=== PATIENT | female | born 1990 | race Caucasian/White ===

== ENCOUNTER 2020-03-19 13:22 | Outpatient (CLI) | payer OTHER, SELFPAY ==
[2020-03-22 06:16] LABS: SARS-CoV-2 RNA Undetected (Undetected); SARS-CoV-2 Specimen Source Nasopharynx
== END 2020-03-19 13:42 ==
PROVIDERS: Visit Provider Obstetrics & Gynecology Gynecology
DX: Z11.59 Encounter for screening for other viral diseases (principal)
CPT/HCPCS: U0003

== ENCOUNTER 2021-08-19 02:26 | Outpatient (CLI) | payer OTHER, SELFPAY ==
[2021-08-19 08:02] LABS: HCT 38.6 % (36.0-46.0); HGB 12.3 g/dL (11.2-15.7); MCH 30.6 pg (27.0-33.0); MCHC 31.9 % (32.0-36.0); MPV 8.4 fL (8.0-11.0); Platelet Count 296 10^3/uL (130-400); RBC 4.02 10^6/uL (3.93-5.22); RDW 11.9 % (11.7-14.6); RDW-SD 42.2 fL; WBC 14.27 10^3/uL (4.4-10.8)
[2021-08-19 08:12] LABS: Hemoglobin A1C 5.5 % (<5.7)
[2021-08-19 10:14] LABS: Calculated LDL 132 mg/dL (<100); Cholesterol 216 mg/dL (<200); HDL Cholesterol 71 mg/dL (40-60); Triglyceride 69 mg/dL (<150)
== END 2021-08-19 02:27 | disposition home or self-care (01) ==
LOC: LBO 02:26
PROVIDERS: PCP Nurse Practitioner; Visit Provider Nurse Practitioner
DX: Z13.6 Encounter for screening for cardiovascular disorders (principal); Z86.2 Personal history of diseases of the blood and blood-forming organs and certain disorders involving the immune mechanism; Z13.1 Encounter for screening for diabetes mellitus
CPT/HCPCS: 36415; 80061; 85027; 83036

== ENCOUNTER 2021-08-29 09:12 | Outpatient (REF) | payer OTHER, SELFPAY ==
--- NOTE | 2021-08-29 08:20 | PAPFT_PTH ---
PATIENT: Neelam An LOC: [facility] U#:[id number] AGE/SX: 31/F ROOM: RE08/29/[address]: Moni Mccord, PhD [employer] M[employer] OPERATOR : 1990 BED: DIS: 08/29/2021 SPEC #: [id number] RECD: 08/29/21 12:46 STATUS: MARY CARMEN RERamiro #: [id number] DIONNA: 08/29/21 08:[address]: Moni Mccord DEPT: [facility] Cytology RECD BY: Elvia Villa Tissues: 1 - CX/ENDOCX FOR PAP SMEARS Procedures: PAP THIN PREP/UVM Screening HPV DNA PROBE Comments: [id number]
--- OUTSIDE RECORDS SUMMARY | 2021-08-29 09:16 | XMS_ITS ---
:1990 External Reference #:[id number] Author Care Team Providers Name Role Phone Kimberly Jackson Primary Care Provider Unavailable Allergies None recorded. Medications None recorded. Problems None recorded. Procedures None recorded. Results Lab Results None recorded. Past Encounters 06/11/2021 Low Back Pain; Pain in Right Hip Joint Kimberly Jackson, DPT: [address], [place] [address], Ph. 03/11/2021 Low Back Pain; Pain in Right Hip Joint Kimberly Jackson, DPT: [address], [place] [address], Ph. 01/20/2021 Low Back Pain; Pain in Right Hip Joint Kimberly Jackson, DPT: [address], [place] [address], Ph. 01/07/2021 Low Back Pain; Pain in Right Hip Joint Kimberly Jackson, DPT: [address], [place] [address], Ph. 12/23/2020 Low Back Pain; Pain in Right Hip Joint Kimberly Jackson, DPT: [address], [place] [address], Ph. Social History None recorded. Vaccine List None recorded. Plan of Care Patient Goals STG to be met in 4 weeks: I in HEP demonstrate good hip/pelvis dissociation in supine and quadruped deny increased pain with short spurts of running (1 minute intervals with 3 minute rest) report decreased daily pain to <2/10 LTG to be met in 8 weeks: I in HEP progression demonstrate good hip/pelvis dissociation in standing and walking deny increased pain with running report decreased daily pain to <2/10 [place] after provoking activities such as sitting and running STG to be met in 4 weeks: I in HEP demonstrate good hip/pelvis dissociation in supine and quadruped deny increased pain with short spurts of running (1 minute intervals with 3 minute rest) report decreased daily pain to <2/10 LTG to be met in 8 weeks: I in HEP progression demonstrate good hip/pelvis dissociation in standing and walking deny increased pain with running report decreased daily pain to <2/10 [place] after provoking activities such as sitting and running STG to be met in 4 weeks: I in HEP demonstrate good hip/pelvis dissociation in supine and quadruped deny increased pain with short spurts of running (1 minute intervals with 3 minute rest) report decreased daily pain to <2/10 LTG to be met in 8 weeks: I in HEP progression demonstrate good hip/pelvis dissociation in standing and walking deny increased pain with running report decreased daily pain to <2/10 [place] after provoking activities such as sitting and running STG to be met in 4 weeks: I in HEP demonstrate good hip/pelvis dissociation in supine and quadruped deny increased pain with short spurts of running (1 minute intervals with 3 minute rest) report decreased daily pain to <2/10 LTG to be met in 8 weeks: I in HEP progression demonstrate good hip/pelvis dissociation in standing and walking deny increased pain with running report decreased daily pain to <2/10 [place] after provoking activities such as sitting and running STG to be met in 4 weeks: I in HEP demonstrate good hip/pelvis dissociation in supine and quadruped deny increased pain with short spurts of running (1 minute intervals with 3 minute rest) report decreased daily pain to <2/10 LTG to be met in 8 weeks: I in HEP progression demonstrate good hip/pelvis dissociation in standing and walking deny increased pain with running report decreased daily pain to <2/10 [place] after provoking activities such as sitting and running Reminders Provider Appointments None ? ? recorded. Lab None ? ? recorded. Referral None ? ? recorded. Procedures None ? ? recorded. Surgeries None ? ? recorded. Imaging None ? ? recorded. Vitals None recorded.
--- OUTSIDE RECORDS SUMMARY | 2021-08-29 09:16 | XMS_ITS | Encounter Summary ---
:1990 External Reference #:[id number] Author Reason for Visit Low Back Pain Assessment and Plan Assessment Note Neelam presents with continued in termittent symptoms which have been buried in nature since her last appointment. She is still unable to identify what flares her pain most of the time and is unab le to participate in the high level of a ctivities that she would like to. She does demonstrate good form and good strength with home exercise program and likely will need additional support in her pelvi s. We extensively discussed treatment op tions including a consult with [facility] as well as the possibility of PRP or prolotherapy. She demonstrated good understanding of education provided and will consider options and start the next phase of her intervention by contacting the appropriate parties. She was also referred to chiropractors. Pt will be seen every 6-8 weeks for 45 m inute session 1:1 with PT. PT will focus on strength, range of motion, flexibility, manual therapy, gait and mobility training, postural retraining and patient ed ucation re: activity progression. Modali ties as needed. Expect steady progress. 1. Low back pain 2. Pain in right hip joint Discussion Note: None recorded.Patient educational handouts: No information available. Plan of Care Patient Goals STG to [...] ? recorded. Imaging None ? ? recorded. Medications None recorded. Medications Administered None recorded. Vitals None recorded. Results Lab Results None recorded. Allergies None recorded. Problems None recorded. Procedures None recorded. Vaccine List None recorded. Social History None recorded. Functional Status Unknown. Past Encounters 06/11/2021 Low Back Pain; Pain in Right Hip Joint Kimberly Jackson, DPT: [address] [address], [place] [address], Ph. History of Present Illness ? PT L-spine Reported By: Patient HPI: Location: right, anterior, p osterior, lateral. Severity: pain level 1-5/10. Alleviating Factors: exercise; walking (20 minutes per day). Aggravating Factors: sitting . Associated Symptoms: numbness/tingling. Prior Studies: MRI Note: <p>Neelam reports she has been up and down. She had a month of pain after last appointment (unrelated to our appointment) and didn't do any exercises during that time. She reports she had been using a body pillow at night and that was making her back feel much better, but was having new pain in the front of the right thigh. She is having some pinching in her low back, but is generally feeling okay. She has not been doing any intensive exercise. She has been using a SI joint belta lot. She has been having some pain in the paraspinal muscles at the TL junction. </p><p>Pt is fully vaccinated for covid and is asymptomatic.</p>Review of Systems: ROS as noted in the HPI Review of Systems None recorded. Physical Exam ? PT L-Spine Eval Reported By: Patient Notes: <p>craigs test 5 degree on t he right</p><p>craigs test on the left 8 degrees</p><div>
</div ><p>3/5 right hip flexor</p><p>Flexibility WNL throughout LEs except ri ght quad is decreased</p><div>
</div> <p>Very poor hip/pelvic dissociation, especially with any hip exte nsion. </p><div>
</div><p>0 degrees of functional hip extension</p> <div>
</div><p>Gait WNL</p><p>Running gait decreased hip extension , decreased stride length. Heel striker</p><div>
</div><p >right pelvic rotation. </p><div>
</div><p>Relief with sacral traction</p><p>- stork</p><div>
</div><p>D ecreased trunk rotation to the left</p><p>decreased trunk s idebend to the right</p><p>Increased lumbar extension</p><p>Otherwise tr unk ROM WNL</p>
== END 2021-08-29 09:13 | disposition home or self-care (01) ==
LOC: LBN 09:12
PROVIDERS: PCP Nurse Practitioner; Visit Provider Nurse Practitioner
DX: Z12.4 Encounter for screening for malignant neoplasm of cervix (principal); Z11.51 Encounter for screening for human papillomavirus (HPV)
CPT/HCPCS: 88142; 87624

== ENCOUNTER 2021-11-28 01:41 | Outpatient (CLI) | payer OTHER, SELFPAY ==
[2021-11-28 08:27] LABS: Absolute Basophil Count 0.02 10^3/uL (0.0-0.2); Absolute Eosinophil Count 0.06 10^3/uL (0.0-0.7); Absolute Lymphocyte Count 1.79 10^3/uL (1.2-3.4); Absolute Monocyte Count 0.32 10^3/uL (0.1-0.8); Absolute Neutrophil Count 2.71 10^3/uL (1.2-6.7); Basophils % 0.4; Eosinophils % 1.2; HCT 40.7 % (36.0-46.0); HGB 13.3 g/dL (11.2-15.7); Lymphocytes % 36.5; MCH 31.3 pg (27.0-33.0); MCHC 32.7 % (32.0-36.0); MCV 96 fL (80-95); MPV 8.4 fL (8.0-11.0); Monocytes % 6.5; Neutrophils % 55.4; Platelet Count 214 10^3/uL (130-400); RBC 4.25 10^6/uL (3.93-5.22); RDW 11.7 % (11.7-14.6); RDW-SD 40.9 fL
[2021-11-28 09:36] LABS: Anion Gap 8.8 mmol/L (3-11); BUN 7 mg/dL (7-18); CO2 28.2 mmol/L (21.0-32.0); CREATININE 0.7 mg/dL (0.55-1.02); Calcium 9.3 mg/dL (8.5-10.1); Chloride 101 mmol/L (98-107); FREE T4 0.97 ng/dL (0.76-1.46); Glucose 86 mg/dL (74-106); Potassium 4.4 mmol/L (3.5-5.1); Sodium 138 mmol/L (136-145); TSH (W/Ref FT4) 2.24 uIU/mL (0.36-3.74)
[2021-11-28 17:56] LABS: T3,Free 3.4 pg/mL (2.8-5.3)
== END 2021-11-28 01:42 | disposition home or self-care (01) ==
LOC: LBO 01:41
PROVIDERS: PCP Nurse Practitioner; Visit Provider Family Medicine
DX: D72.829 Elevated white blood cell count, unspecified (principal); R53.83 Other fatigue
CPT/HCPCS: 36415; 80048; 84439; 84443; 84481; 85025

== ENCOUNTER → 2022-03-21 11:29 | Outpatient (CLI) | payer OTHER, SELFPAY ==
--- NOTE | 2022-03-21 11:45 | DI.RAD_ITS ---
Exam(s) XR CERVICAL SPINE COMP 4-5V EXAM: XR CERVICAL SPINE COMP 4-5V CLINICAL HISTORY: vertebral alignment TECHNIQUE: COMPARISON: No exams were available for comparison FINDINGS: Five views were obtained. There is a slight cervical kyphosis. Intervertebral disc spaces are well maintained. No prevertebral soft tissue abnormality. Unremarkable appearance of the vertebrae. Thuy ral foramina are well maintained. IMPRESSION: Slight kyphotic deformity which may be positional. RADIATION DOSE DELIVERED: Total DLP
--- NOTE | 2022-03-21 12:23 | DI.VRAD_ITS ---
PROCEDURE INFORMATION: Exam: XR Spine; Cervical Exam date and time: 03/21/2022 12:01 PM Age: 31 years old Clinical indication: Pain; Pain: Vertebral alignment TECHNIQUE: Imaging protocol: XR of the spine. Exam focused on the cervical spine. Views: 1 view. COMPARISON: No relevant prior studies available. FINDINGS: Bones/joints: Normal. No acute fracture. Normal alignment. Disc spaces are well preserved. No facet arthropathy. Soft tissues: Normal. No prevertebral soft tissue swelling. IMPRESSION: No acute findings. Dictated and Authenticated by: Aron Goss MD. Ordering:ANNA Villaseñor MD
== END ==
PROVIDERS: PCP Nurse Practitioner; Visit Provider Nurse Practitioner Family
DX: M54.2 Cervicalgia (principal); M40.292 Other kyphosis, cervical region
CPT/HCPCS: 72050

== ENCOUNTER 2022-05-06 02:44 | Outpatient (CLI) | payer OTHER, SELFPAY ==
[2022-05-07 06:05] LABS: Vitamin D 25 Total 38.3 ng/mL (30-100)
[2022-05-08 08:18] LABS: Homocysteine 7.5 umol/L (5.0-13.9)
[2022-05-08 12:54] LABS: Ceruloplasmin 22.9 mg/dL
[2022-05-08 13:11] LABS: Copper, Serum 92 mcg/dL (77-206)
[2022-05-11 17:21] LABS: Apolipoprotein B, Serum 89 mg/dL (48-124); Beta VLDL Cholesterol Not Detected mg/dL (<15); Beta VLDL Triglycerides Not Detected mg/dL (<15); Cholesterol, Total, CDC 189 mg/dL; Chylomicron Cholesterol Not Detected; Chylomicron Triglycerides Not Detected; HDL Cholesterol, CDC 63 mg/dL (>=50); Interpretation Normal; LDL Cholesterol 119 mg/dL; LDL Triglycerides 24 mg/dL (<=50); Lp(a) Cholesterol <5 mg/dL (<5); LpX Not detected; Triglycerides, CDC 54 mg/dL; VLDL Cholesterol 7 mg/dL (<30); VLDL Triglycerides 15 mg/dL (<120)
[2022-05-22 11:43] LABS: Misc Referral (MAYO) See Comments
== END 2022-05-06 02:45 | disposition home or self-care (01) ==
PROVIDERS: PCP Nurse Practitioner; Visit Provider Naturopath
DX: Z13.29 Encounter for screening for other suspected endocrine disorder (principal); Z13.0 Encounter for screening for diseases of the blood and blood-forming organs and certain disorders involving the immune mechanism; Z13.21 Encounter for screening for nutritional disorder; Z13.228 Encounter for screening for other metabolic disorders; Z13.220 Encounter for screening for lipoid disorders; Z51.81 Encounter for therapeutic drug level monitoring
CPT/HCPCS: 36415; 80061; 82306; 82390; 82525; 83090; 84630; 82172; 82664

== ENCOUNTER 2022-08-21 01:32 | Outpatient (CLI) | payer BC, SELFPAY | END 2022-08-21 01:33 | disposition home or self-care (01) | PROVIDERS: PCP Nurse Practitioner Family; Visit Provider Family Medicine | DX: Z78.9 Other specified health status (principal) | CPT/HCPCS: 36415; 87207 ==

== ENCOUNTER 2023-02-12 02:12 | Outpatient (CLI) | payer BC, SELFPAY ==
[2023-02-12 13:16] LABS: Absolute Basophil Count 0.04 10^3/uL (0.0-0.2); Absolute Eosinophil Count 0.03 10^3/uL (0.0-0.7); Absolute Monocyte Count 0.24 10^3/uL (0.1-0.8); Absolute Neutrophil Count 2.12 10^3/uL (1.2-6.7); Eosinophils % 0.8; HCT 36.1 % (36.0-46.0); HGB 12.1 g/dL (11.2-15.7); Lymphocytes % 36.6; MCH 31.3 pg (27.0-33.0); MCHC 33.5 % (32.0-36.0); MCV 93 fL (80-95); MPV 9.2 fL (8.0-11.0); Monocytes % 6.3; Neutrophils % 55.3; Platelet Count 243 10^3/uL (130-400); RBC 3.87 10^6/uL (3.93-5.22); RDW 12.6 % (11.7-14.6); RDW-SD 43.1 fL; WBC 3.83 10^3/uL (4.4-10.8)
[2023-02-12 13:24] LABS: ESR < 1 mm/hr (0-20)
[2023-02-12 13:44] LABS: C-Reactive Protein < 0.05 mg/dL (0.0-0.3); FREE T4 0.87 ng/dL (0.76-1.46); TSH 0.87 uIU/mL (0.36-3.74)
[2023-02-12 14:21] LABS: Vitamin B12 1395 pg/mL (193-986)
[2023-02-12 21:45] LABS: T3,Free 3.6 pg/mL (2.8-5.3)
[2023-02-14 12:37] LABS: CMV Ab, IgG Negative (Negative); CMV Ab, IgM Negative (Negative); EBV EA IgG Negative (Negative)
[2023-02-15 11:12] LABS: EBNA IgG Positive (Negative); EBV Interpretation (See Note); VCA IgG Positive (Negative); VCA IgM Negative (Negative)
[2023-02-15 13:34] LABS: Hep A Total Ab w Rflx IgM Positive (Negative)
[2023-02-15 14:39] LABS: Hep A Antibody IgM Negative (Negative)
[2023-02-15 16:15] LABS: Spotted Fever Group Ab IgM <1:64 (<1:64)
[2023-02-16 22:46] LABS: F. tularensis Ab, IgG Negative (Negative); F. tularensis Ab, IgM Negative (Negative)
[2023-02-17 17:34] LABS: 25-Hydroxy D Total 30 ng/mL; 25-Hydroxy D2 <4.0 ng/mL; 25-Hydroxy D3 30 ng/mL
[2023-02-19 14:11] LABS: Brucella Ab, Agglutination <1:80 (<1:80)
[2023-02-24 08:19] LABS: Misc Referral (MAYO) See Comments
== END 2023-02-12 02:13 | disposition home or self-care (01) ==
PROVIDERS: PCP Nurse Practitioner Family; Visit Provider Naturopath
DX: E03.9 Hypothyroidism, unspecified (principal); D51.9 Vitamin B12 deficiency anemia, unspecified; E55.9 Vitamin D deficiency, unspecified; R53.83 Other fatigue; R50.9 Fever, unspecified; M25.571 Pain in right ankle and joints of right foot; G31.84 Mild cognitive impairment of uncertain or unknown etiology; R53.81 Other malaise; D72.9 Disorder of white blood cells, unspecified; Z11.59 Encounter for screening for other viral diseases; Z01.84 Encounter for antibody response examination
CPT/HCPCS: 36415; 82306; 85652; 86622; 86663; 86668; 86709; 86793; 82607; 84439; 84443; 84481; 85025; 86140; 86644; 86645; 86664; 86665; 86757; 87798

== ENCOUNTER 2023-05-28 18:31 | Outpatient (REF) | payer BC, SELFPAY ==
[2023-05-28 12:23] LABS: Anion Gap 9.2 mmol/L (3-11); BUN 12 mg/dL (7-18); CO2 25.8 mmol/L (21.0-32.0); CREATININE 0.7 mg/dL (0.55-1.02); Calcium 9.2 mg/dL (8.5-10.1); Chloride 102 mmol/L (98-107); Estimated GFR 116.31 (mL/min/1.73m2); Glucose 114 mg/dL (74-106); Potassium 4.3 mmol/L (3.5-5.1); Sodium 137 mmol/L (136-145)
== END 2023-05-28 18:32 | disposition home or self-care (01) ==
LOC: LBN 18:31
PROVIDERS: PCP Nurse Practitioner Family; Visit Provider Nurse Practitioner Family
DX: U07.1 COVID-19 (principal)
CPT/HCPCS: 80048

== ENCOUNTER → 2023-10-01 00:22 | Outpatient (CLI) | payer BC, SELFPAY ==
--- NOTE | 2023-10-01 12:30 | DI.US_ITS ---
APPROVED REPORT EXAM: Comprehensive 2D, Doppler, and color-flow Echocardiogram Patient Location: Out-Patient 911 Operator: Noemi Aguila RDCS (AE) Indications: ?MVP, aortic root dilation, HX of EDS Other Information Study Quality: Good Conclusion Normal left ventricular wall thickness and chamber size. Ejection is 60%. Wall motion is normal. D iastolic function is normal Normal right ventricular size and systolic function Both atria are normal in size There is no structural or hemodynamically significant valvular disease Estimated right ventricular systolic pressure is 20 mmHg Aortic root and ascending aorta are normal in size Wall motion Left Ventricle The left ventricle is normal size. The left ventricular systolic function is normal. The left ventric ular ejection fraction is within the normal range. There is normal left ventricular wall thickness. T here is normal LV segmental wall motion. There is no ventricular septal defect visualized. LVEF is 60 %. Right Ventricle The right ventricle is normal size. The right ventricular systolic function is normal. Atria The left atrium size is normal. The right atrium size is normal. The interatrial septum is intact wit h no evidence for an atrial septal defect. Aortic Valve The aortic valve is normal in structure. Aortic valve is trileaflet. There is no aortic valvular sten osis. Mitral Valve The mitral valve is normal in structure. No evidence of mitral valve stenosis. Trace mitral regurgita tion. Tricuspid Valve The tricuspid valve is normal in structure. There is no tricuspid valve stenosis. Trace tricuspid reg urgitation. The RVSP is 20.0mmHg. Pulmonic Valve The pulmonary valve is normal in structure. There is no pulmonic valvular stenosis. Trace to mild pu lmonic regurgitation. Great Vessels The aortic root is normal in size. The ascending aorta is normal in size. Aortic arch is normal in ca liber. IVC is normal in size and collapses >50% with inspiration. Pericardium There is no pericardial effusion. 2D Dimensions IVSD d PLAX 0.75 cm F: 0.6-1.0 Ao Root d 2.33 cm F: 2.7 - 3.3 LVPW d PLAX 0.71 cm F: 0.6 - 1.0 Ao Asc Diam d 2.19 cm F: 2.3 - 3.1 LVID d PLAX 4.18 cm F: 3.8 - 5.2 LVDs 2.83 cm F: 2.2 - 3.5 LV EF Teichholz 61.0 % FS 32.35 % LV EDV (Teich) 77.5 mL LV ESV (Teich) 30.2 mL Auto EF LV EDV A4C 90.4 mL LV EDV A2C 112.7 mL LV EDV BP 102.2 mL LV ESV A4C 35.1 mL LV ESV A2C 47.1 mL LV ESV BP 41.2 mL LVEF(%) A4C 61.1 % LVEF(%) A2C 58.2 % LVEF(%) BP 59.7 % LV SV A4C 55.2 ml LV SV A2C 65.6 ml LV SV BP 61.1 ml LV CO A4C 2.9 L/min LV CO A2C 3.8 L/min LV CO BP 3.4 L/min HR A4C 52.87 BPM HR A2C 58.43 BPM LV EDV Index (BP) LV Strain Long Pk Overal Avg (s) 21.67 LA Volume LA Length A4C 4.8 cm LA Length A2C 4.9 cm LA Area A4C s 14.14 cm2 LA Area A2C s 14.79 cm2 LA Vol A4C A-L 35.27 mL LA Vol A2C A-L 37.56 mL LA Vol Biplane A-L 36.9 mL LA Vol/BSA A4C A-L LA Vol/BSA A2C A-L LA Vol/BSA BP A-L 22.5 mL/m2 LA Vol A4C MOD 32.5 mL LA Vol A2C MOD 35.5 mL LA Vol BP MOD 34.4 mL RA Volume RA Area A4C 13.6 cm2 RA ESV A4C (A-L) 33.9mL RA Vol/BSA A4C A-L RA Length A4C 4.6 cm RA ESV A4C (MOD) 32.0mL LV Diastology MV E' medial 0.128 (>0.07 m/s) MV E Vmax 1.06 (0.4-1.3 m/s) MV E/E' MED 8.25 (<14) MV A Vmax 0.35 (0.4-1.3 m/s) MV E' lateral 0.185 (>0.1 m/s) E/A Ratio 3.0 MV E/E' LAT 5.70 (<14) MV E' Average 0.157 m/s MV E/E'(average) 6.74 Aortic Valve AoV Vmax 1.22 m/s LVOT Vmax 1.29 m/s AoV Peak Grad 5.9 mmHg LVOT Peak Grad 6.7 mmHg AoV Area (Vmax) 2.93 cm2 LVOT VTI 0.292 m AoV VTI 0.300 m LVOT Mean Grad 3.5 mmHg AoV Mean Tony. 0.83 m/s LVOT SV 80.71 mL AoV Mean Grad 3.2 mmHg LVOT Diam s 1.85 cm AoV Area (VTI) 2.69 cm2 Velocity Ratio 1.06 Mitral Valve MV DT 193 (160-240 msec) MV Vmax TIPS 1.18 m/s MV Mean Grad 1.3 (<2mmHg) MV VTI 0.281 m Pulmonary Valve PV Vmax 1.03 (0.5-1.5 m/s) RVOT Vmax 0.84 m/s PV Peak Grad 4.2 mmHg RVOT Peak Gr. 2.8 mmHg PV Mean Tony 0.72 m/s RVOT VTI 0.198 m PV Mean Grad 2.4 mmHg RVOT Mean Gr. 1.6 mmHg Tricuspid Valve RA Pressure 3.00 mmHg TR Vmax 2.06 m/s TV S' 0.15 m/s TR Peak Grad 16.9 mmHg RVSP (TR) 20.0 mmHg
== END ==
PROVIDERS: PCP Nurse Practitioner Family; Visit Provider Nurse Practitioner Family
DX: Q79.62 Hypermobile Ehlers-Danlos syndrome (principal)
CPT/HCPCS: 93306

== ENCOUNTER 2024-05-31 01:40 | Outpatient (CLI) | payer BC, SELFPAY ==
[2024-05-31 15:03] LABS: HCT 37.3 % (36.0-46.0); HGB 12.4 g/dL (11.2-15.7); MCH 31.9 pg (27.0-33.0); MCHC 33.2 % (32.0-36.0); MCV 96 fL (80-95); MPV 8.9 fL (8.0-11.0); Platelet Count 231 10^3/uL (130-400); RBC 3.89 10^6/uL (3.93-5.22); RDW-SD 41.9 fL; WBC 4.76 10^3/uL (4.4-10.8)
[2024-05-31 15:44] LABS: Anion Gap 9.5 mmol/L (3-11); BUN 10 mg/dL (7-18); CO2 26.5 mmol/L (21.0-32.0); CREATININE 0.7 mg/dL (0.55-1.02); Calculated LDL 80 mg/dL (<100); Chloride 106 mmol/L (98-107); Cholesterol 158 mg/dL (<200); Estimated GFR 115.59 (mL/min/1.73m2); Glucose 88 mg/dL (74-106); HDL Cholesterol 67 mg/dL (40-60); Potassium 4.1 mmol/L (3.5-5.1); Sodium 142 mmol/L (136-145); TSH 1.14 uIU/mL (0.36-3.74); Triglyceride 56 mg/dL (<150)
[2024-05-31 16:05] LABS: FREE T4 0.89 ng/dL (0.76-1.46)
[2024-05-31 22:31] LABS: T3,Free 3.5 pg/mL (2.8-5.3)
[2024-05-31 23:19] LABS: Thyroglobulin Antibody <15 U/mL (<=60); Thyroperoxidase Antibody <28 U/mL (<=60)
== END 2024-05-31 01:41 | disposition home or self-care (01) ==
LOC: LBO 01:40
PROVIDERS: PCP Nurse Practitioner Family; Visit Provider Nurse Practitioner Family
DX: Z00.00 Encounter for general adult medical examination without abnormal findings (principal); G47.00 Insomnia, unspecified; Q79.62 Hypermobile Ehlers-Danlos syndrome; A69.20 Lyme disease, unspecified; E78.5 Hyperlipidemia, unspecified; F41.1 Generalized anxiety disorder
CPT/HCPCS: 36415; 80048; 80061; 85027; 86376; 84439; 84443; 84481

== ENCOUNTER 2024-06-09 01:07 | Outpatient (CLI) | payer BC, SELFPAY ==
[2024-06-09 11:41] LABS: HCG Quant, Pregnancy 1 mIU/mL (1-3)
== END 2024-06-09 01:08 | disposition home or self-care (01) ==
LOC: LBO 01:08
PROVIDERS: Advanced Practice Midwife; PCP Nurse Practitioner Family; Visit Provider Nurse Practitioner Family
DX: O20.0 Threatened abortion (principal)
CPT/HCPCS: 36415; 86850; 86900; 86901; 84702

== ENCOUNTER 2024-08-14 03:11 | Outpatient (CLI) | payer BC, SELFPAY ==
[2024-08-14 16:56] LABS: Panorama Kit Sent via Fed Ex
[2024-08-14 17:14] LABS: Abs Immature Grans 0.01 10^3/uL (0.0-0.06); Absolute Basophil Count 0.04 10^3/uL (0.0-0.2); Absolute Eosinophil Count 0.04 10^3/uL (0.0-0.7); Absolute Lymphocyte Count 1.85 10^3/uL (1.2-3.4); Absolute Neutrophil Count 4.85 10^3/uL (1.2-6.7); Basophils % 0.6 %; Eosinophils % 0.6 %; HCT 35.8 % (36.0-46.0); HGB 12.2 g/dL (11.2-15.7); Immature Grans % 0.1 %; Lymphocytes % 25.7 %; MCHC 34.1 % (32.0-36.0); MCV 94 fL (80-95); MPV 8.7 fL (8.0-11.0); Monocytes % 5.6 %; Neutrophils % 67.4 %; Platelet Count 234 10^3/uL (130-400); RBC 3.81 10^6/uL (3.93-5.22); RDW 11.8 % (11.7-14.6); RDW-SD 40.8 fL; WBC 7.19 10^3/uL (4.4-10.8)
[2024-08-14 17:33] LABS: FREE T4 0.81 ng/dL (0.76-1.46)
[2024-08-15 18:33] LABS: T3,Free 3.6 pg/mL (2.8-5.3)
[2024-08-15 19:05] LABS: Hepatitis B Surface Ag Negative (Negative)
[2024-08-15 19:38] LABS: HIV-1/2 Ag & Ab Screen Negative (Negative)
[2024-08-15 19:42] LABS: Hepatitis C Ab w Rflx HCV PCR Negative (Negative)
[2024-08-16 11:20] LABS: Rubella IgG Ab (UVM) Positive (See Note)
[2024-08-16 12:16] LABS: Varicella IgG Antibody Positive (See Note)
[2024-08-17 18:14] LABS: Syphilis IgG w/Reflex Nonreactive (Nonreactive)
[2024-08-21 08:31] LABS: Factor V Leiden(R506Q) Mut Negative (Negative)
== END 2024-08-14 03:12 | disposition home or self-care (01) ==
LOC: LBO 03:12
PROVIDERS: Advanced Practice Midwife; PCP Nurse Practitioner Family; Visit Provider Advanced Practice Midwife
DX: Z87.59 Personal history of other complications of pregnancy, childbirth and the puerperium; Z34.91 Encounter for supervision of normal pregnancy, unspecified, first trimester
CPT/HCPCS: 36415; 81241; 86787; 86803; 86850; 86900; 86901; 87340; 87389; 84439; 84481; 85025; 86762; 86780

== ENCOUNTER 2024-08-14 18:54 | Outpatient (REF) | payer BC, SELFPAY ==
[2024-08-14 18:45] LABS: *AMPHETAMINES SCREEN URINE Negative (Negative); *BARBITURATES SCREEN URINE Negative (Negative); *BENZODIAZEPINES SCREEN URINE Negative (Negative); Cannabinoids THC Negative (Negative); Cocaine Screen,Urine Negative (Negative); METHADONE URINE SCREEN Negative (Negative); OPIATES URINE SCREEN Negative (Negative); Tricyclic Antidepressants Negative (Negative)
[2024-08-16 11:26] LABS: Fentanyl Scr w/Rfx Confirm Negative ng/mL (<1)
[2024-08-16 12:51] LABS: Chlamydia Result Negative (Negative); GC Result Negative (Negative)
[2024-08-19 12:16] LABS: Buprenorphine Negative ng/mL (Cutoff: 5.0); Norbuprenorphine Negative ng/mL (Cutoff: 2.5)
== END 2024-08-14 18:55 | disposition home or self-care (01) ==
LOC: LBN 18:54
PROVIDERS: PCP Nurse Practitioner Family; Visit Provider Advanced Practice Midwife
DX: N89.8 Other specified noninflammatory disorders of vagina (principal); Z3A.01 Less than 8 weeks gestation of pregnancy
CPT/HCPCS: 80307; 80348; 87491; 87591; 87086; 87480; 87510; 87660

== ENCOUNTER 2024-09-29 16:26 | Outpatient (REF) | payer BC, SELFPAY ==
[2024-10-02 12:14] LABS: Chlamydia Result Negative (Negative); GC Result Negative (Negative)
== END 2024-09-29 16:27 | disposition home or self-care (01) ==
LOC: LBN 16:26
PROVIDERS: PCP Nurse Practitioner Family; Visit Provider Obstetrics & Gynecology
DX: N89.8 Other specified noninflammatory disorders of vagina (principal); B37.31 Acute candidiasis of vulva and vagina
CPT/HCPCS: 87491; 87591; 87480; 87510; 87660

== ENCOUNTER 2024-10-27 17:57 | Outpatient (REF) | payer BC, SELFPAY | END 2024-10-27 17:58 | disposition home or self-care (01) | LOC: LBN 17:57 | PROVIDERS: PCP Nurse Practitioner Family; Visit Provider Obstetrics & Gynecology | DX: N89.8 Other specified noninflammatory disorders of vagina (principal); Z87.59 Personal history of other complications of pregnancy, childbirth and the puerperium | CPT/HCPCS: 87480; 87510; 87660 ==

== ENCOUNTER 2024-11-10 15:44 | Outpatient (REF) | payer BC, SELFPAY | END 2024-11-10 15:45 | disposition home or self-care (01) | LOC: LBN 15:44 | PROVIDERS: PCP Nurse Practitioner Family; Visit Provider Obstetrics & Gynecology | DX: N89.8 Other specified noninflammatory disorders of vagina (principal) | CPT/HCPCS: 87480; 87510; 87660 ==

== ENCOUNTER 2024-12-13 11:12 | Outpatient (REF) | payer BC, SELFPAY ==
[2024-12-22 08:20] LABS: Fungus Smear No Fungi Seen
== END 2024-12-13 11:13 | disposition home or self-care (01) ==
LOC: LBN 11:12
PROVIDERS: PCP Nurse Practitioner Family; Visit Provider Obstetrics & Gynecology
DX: N89.8 Other specified noninflammatory disorders of vagina (principal); N76.0 Acute vaginitis
CPT/HCPCS: 87102; 87206; 87480; 87510; 87660

== ENCOUNTER 2025-01-09 14:15 | Outpatient (REF) | payer BC, SELFPAY | END 2025-01-09 14:16 | disposition home or self-care (01) | LOC: LBN 14:15 | PROVIDERS: PCP Nurse Practitioner Family; Visit Provider Obstetrics & Gynecology | DX: N89.8 Other specified noninflammatory disorders of vagina (principal) | CPT/HCPCS: 87480; 87510; 87660 ==

== ENCOUNTER 2025-05-21 09:14 | Outpatient (CLI) | payer BC, SELFPAY ==
[2025-05-21 14:40] LABS: Abs Immature Grans 0.01 10^3/uL (0.0-0.06); HCT 40.0 % (36.0-46.0); HGB 13.4 g/dL (11.2-15.7); Immature Grans % 0.3 %; MCH 32.2 pg (27.0-33.0); MCHC 33.5 % (32.0-36.0); MCV 96 fL (80-95); MPV 9.7 fL (8.0-11.0); Platelet Count 258 10^3/uL (130-400); RBC 4.16 10^6/uL (3.93-5.22); RDW 11.9 % (11.7-14.6); RDW-SD 42.3 fL; WBC 3.85 10^3/uL (4.4-10.8)
[2025-05-21 15:02] LABS: ALT 21 U/L (14-59); AST 20 U/L (15-37); Albumin 4.3 g/dL (3.4-5.0); Alkaline Phosphatase 33 U/L (46-116); Anion Gap 7.7 mmol/L (3-11); BUN 12 mg/dL (7-18); Bilirubin, Total 0.4 mg/dL (0.2-1.0); CO2 30.3 mmol/L (21.0-32.0); Calcium 9.5 mg/dL (8.5-10.1); Chloride 100 mmol/L (98-107); Estimated GFR 97.87 (mL/min/1.73m2); Ferritin 58 ng/mL (8-252); Glucose 84 mg/dL (74-106); Potassium 4.5 mmol/L (3.5-5.1); Sodium 138 mmol/L (136-145); Total Protein 7.7 g/dL (6.4-8.2)
== END 2025-05-21 09:15 | disposition home or self-care (01) ==
LOC: LOS 09:15
PROVIDERS: PCP Nurse Practitioner Family; Visit Provider Nurse Practitioner Family
DX: Q79.62 Hypermobile Ehlers-Danlos syndrome (principal); D64.9 Anemia, unspecified
CPT/HCPCS: 36415; 80053; 82784; 83516; 82728; 85025

== ENCOUNTER 2025-07-11 15:34 | Outpatient (CLI) | payer BC, SELFPAY | END 2025-07-11 15:35 | disposition home or self-care (01) | PROVIDERS: PCP Nurse Practitioner Family; Visit Provider Nurse Practitioner Family | DX: K90.41 Non-celiac gluten sensitivity (principal) | CPT/HCPCS: 36415; 86816 ==